=== PATIENT | female | born 2000 | race Caucasian/White ===

== ENCOUNTER 2024-11-14 15:12 | Outpatient (OUT) | payer OTHER, SELFPAY ==
--- OUTSIDE RECORDS SUMMARY | 2024-11-14 15:22 | XMS_ITS | Clinical Summary ---
Author Organization [employer] Address [id number] [address] [place] [address] Care Team Providers Care Staff Reporter Name Role Phone Amanuel Duncan MD Primary Care Provider [phone] Allergies No known active allergies Medications no115/iron/folic acid ( 19 ORAL) Take by mouth. Active Active Problems Estimated Date of Delivery Comme nts Yes 02/12/2025 Based on Ultraso und No known active problems Encounters Date Type Department Care Team Description 10/03/2024 8:45 AM EDT Routine [facility] [address] [facility] [address] [place] [address] Thor Wilkinson MD GA: 21w1d 10/03/2024 Travel 10/02/2024 Telephone [facility] [address] [facility] [address] [place] [id number] Parul Walker RMA Need photo ID 09/23/2024 Travel 08/27/2024 9:00 AM EDT Routine [facility] [address] [facility] [address] [place] [address] Thor Wilkinson MD GA: 15w6d 08/26/2024 Travel from Last 3 Months Family History Medical History Relation Name Comments Autism Brother No Known Problems Father No Known Problems Maternal Grandfather No Known Problems Maternal Grandmother Hypertension Mother No Known Problems Paternal Grandfather No Known Problems Paternal Grandmother Relation Name Status Comments Brother Alive Father Alive Maternal Grandfather Alive Maternal Grandmother Alive Mother Alive Paternal Grandfather Alive Paternal Grandmother Alive Social History Tobacco Use Types Packs/Day Years Used Date Smoking Tobacco: Never Smokeless Tobacco: Never Tobacco Cessation:Counseling Given: Not Answered Alcohol Use Standard Drinks/Week Comments Not Currently 2 (1 standard drink = 0.6 oz pur e alcohol) Overall Financial Resource Strain (CARDIA) Answe r Date Recorded How hard is it for you to pa y for the very basics like food, housing, medical care, and heating? Not very hard 10/03/2024 PHQ-2 Answer Date Recorded Total Score 0 10/03/2024 Housing Instability Answer Date Recorde d Are you worried or concerned that in the next two months you may not have stable housing that you own, rent or stay in as a part of a household? No 07/09/2024 Childcare Answer Date Recorded Do problems getting child ca re make it difficult for you to work or study? No 10/03/2024 Hunger Screening Answer Date Recorded Within the past 12 months we worried whether our food would run out before we got money to buy more. Never True 10/03/2024 Within the past 12 months th e food we bought just didn't last and we didn't have money to get more. Never True 10/03/2024 Estimated Date of Delivery Comme nts Yes 02/12/2025 Based on Ultraso und Sex and Gender Information Value Date Recorded Sex Assigned at Female 09/23/2024 12:10 PM EDT Legal Sex Female 5:01 PM EST Gender Identity Female 09/23/2024 12:10 PM EDT Sexual Orientation Not on file Last Filed Vital Signs Vital Sign Reading Time Taken Comments Blood Pressure 128/89 10/03/2024 8:31 AM EDT Pulse 118 03/23/2022 5:32 PM EST Temperature 36.6 C (97.9 F) 03/23/2022 5:32 PM EST Respiratory Rate 16 03/23/2022 5:32 PM EST Oxygen Saturation 100% 03/23/2022 5:32 PM EST Inhaled Oxygen Concentration - - Weight 71.7 kg (158 lb) 10/03/2024 8:31 AM EDT Height 162.6 cm (5' 4 ) 06/06/2024 9:31 AM EST Body Mass Index 27.12 06/06/2024 9:31 AM EST Plan of Treatment Health Maintenance Due Date Last Done Comments Adult BMI Follow Up Plan 08/28/2017 DTaP,Tdap and Td Vaccines (7 - Td or Tdap) 10/09/2021 10/10/2011, 12/28/2004, 11/12/2002, Additional history exists COVID-19 Vaccine (3 - 2023-2 5 season) 2024 05/03/2021, 04/04/2021 Influenza Vaccine 01/05/2025 02/22/2024, , 03/13/2022, Additional history exists Adult BMI Screening 10/03/2025 10/03/2024 Depression Screening 10/03/2025 10/03/2024 Tobacco Screening 10/03/2025 10/03/2024 Pap Smear 07/22/2027 07/21/2024 Medical Devices Not on file Procedures Procedure Name Priority Date/Time Associated Diagnosis Comments AFP SINGLE MARKER SCRN, MATERNAL, SERUM Routine 09/23/2024 2:51 PM EDT Second trimester PAP SMEAR Routine 07/21/2024 5:46 AM EDT Pap smear for cervical cancer screening from Last 3 Months or Most Recently Relevant to Health Maintenance Results * AFP Single Marker Scrn, Maternal, Serum (09/23/2024 2:51 PM EDT) AFP SINGLE MARKER SCRN, MATERNAL, SERUM SEE COMMENTS 09/24/2024 2:02 PM EDT [facility] Comment: Test Result Flag Unit RefValue AFP Single Marker SCRN, Maternal, S Results Summary Normal risk Neural tube defect risk estimate 05/09,700 AFP 90.9 ng/mL AFP MoM 1.59 MoM <2.50 INTERPRETATION Screen negative for neural tube defects. RECOMMENDED FOLLOW UP None. Specimen collection date 09/23/24 Maternal date of 89 Calculated age at COURTNEY 24 years Maternal Weight 145 lbs Insulin dependent diabetes No Patient race non-Black Current cigarette smoking status non-Smoker COURTNEY by LMP 02/12/25 GA on collection by dates 19,5 wk,d GA used in risk estimate Dates estimate Number of Fetuses 1 Number of Chorions Unknown IVF No Prev w/ Neural Tube Defect Not provided by client Patient or father of baby has a NTD Not provided by client Initial or repeat testing Initial testing Physician GENERAL TEST INFORMATION SEE COMMENTS This screening provides an estimation of risk, not a diagnosis. Incorrect or incomplete information may significantly alter results. Results may be unreliable in twin pregnancies with a demise. Results are not available for pregnancies with triplets and higher-order multiples. A positive result occurs when the AFP MoM equals or exceeds 2.5. Screen results and family history influence individual risk. If there is a family history of a neural tube defect, chromosome abnormality, or other inherited condition, consider the option of a genetic consultation. For further information, please contact the maternal screening laboratory at . ADDITIONAL INFORMATION This test was developed and its performance characteristics determined by [facility] in a manner consistent with CLIA requirements. This test has not been cleared or approved by the U.S. Food and Drug Administration. Test Performed by: [facility] - [address] [address] Corrugated Sheet Material Sheeter: Michael Swanson Ph.D.; CLIA# [id number] Blood Venipuncture / Unknown 09/23/2024 2:51 PM EDT 09/23/2024 2:51 PM EDT us Thor Wilkinson MD LAB BLOOD ORDERABLES Final Res ult [facility] [address] [place] [address], * Pap Smear (07/21/2024 5:46 AM EDT) 07/21/2024 5:46 AM EDT 07/21/2024 5:47 AM EDT Narrative [facility] - 08/01/2024 4:08 PM EDT [facility] [address] [place] [address] Gynecologic Cytology Consultation Patient Name:NIKI KAT:2000 (Age: 23)Gender:FTaken:07/21/2024Reported:08/01/2024Physician(s):Thor Wilkinson M.D. ([phone])Copy To: Rec. #:[id number]: #[id number] Final Cytologic Interpretation ThinPrep Pap Test (Cervical): Satisfactory for evaluation. A transformation zone component is not identified via imaging-assisted review, using [employer] Thin Prep Imaging System, within 22 microscopic siegel of view. NEGATIVE FOR INTRAEPITHELIAL LESION OR MALIGNANCY. [facility] [place]24 Interpretation performed at [facility], [address] [place] [address], License number: [id number]. Electronically Signed Out By YUE Santoyo(ASCP) Date of Last Menstrual Period: (None Given) Other Clinical Conditions: Z12.4 Screening for malignant neoplasm of cervix Source of Specimen ThinPrep Pap Test (Cervical) Thin Prep Pap (SIGN ARTIST) Fee Code(s): G0145 The Pap test is a screening test with an inherent, but low, probability of error. The Pap test is primarily effective for the diagnosis and prevention of squamous cell carcinoma. Regular screening is critical for prevention. ThinPrep liquid-based slides, which meet the Programming Manager criteria for automated screening, have been screened by the ThinPrep Imaging System (as of 01/21/07) along with an additional manual rescreening by a hydrogeology professor and, if indicated, by a pathologist. Thor Wilkinson MD PATHOLOGY/CYTOLOGY ORDERABLES Final Result [facility] from Last 3 Months or Most Recently Relevant to Health Maintenance Insurance [employer] Care Teams Staff Reporter Relationship Specialty Start Date End Date Amanuel Duncan MD [address] [place] [address] PCP - General Family Medicine 06/05/24
--- OUTSIDE RECORDS SUMMARY | 2024-11-14 15:22 | XMS_ITS | Encounter Summary ---
Author Organization [employer] Address [id number] [address] [place] [address] Care Team Providers Care Pot Puller Name Role Phone Amanuel Duncan MD Primary Care Provider [phone] Encounter Details Date Type Department Care Team (Late st Contact Info) Description 08/06/2024 Orders Only [facility] [address] [facility] [address] [place] [address] Ref Prov, [place] [address] Social History Tobacco Use Types Packs/Day Years Used Date Smoking Tobacco: Never Smokeless Tobacco: Never Alcohol Use Standard Drinks/Week Comments Not Currently 2 (1 standard drink = 0.6 oz pur e alcohol) Overall Financial Resource Strain (CARDIA) Answe r Date Recorded How hard is it for you to pa y for the very basics like food, housing, medical care, and heating? Not very hard 07/09/2024 PHQ-2 Answer Date Recorded Total Score 0 07/09/2024 Housing Instability Answer Date Recorde d Are you worried or concerned that in the next two months you may not have stable housing that you own, rent or stay in as a part of a household? No 07/09/2024 Childcare Answer Date Recorded Do problems getting child ca re make it difficult for you to work or study? No 07/09/2024 Hunger Screening Answer Date Recorded Within the past 12 months we worried whether our food would run out before we got money to buy more. Never True 07/09/2024 Within the past 12 months th e food we bought just didn't last and we didn't have money to get more. Never True 07/09/2024 Estimated Date of Delivery Comme nts Yes 02/12/2025 Based on Ultraso und Sex and Gender Information Value Date Recorded Sex Assigned at Female 09/23/2024 12:10 PM EDT Legal Sex Female 5:01 PM EST Gender Identity Female 09/23/2024 12:10 PM EDT Sexual Orientation Not on file documented as of this encounter Plan of Treatment Not on file documented as of this encounter Procedures Procedure Name Priority Date/Time Associated Diagnosis Comments UNLISTED GENETIC TEST Routine 08/06/2024 8:04 AM EDT documented in this encounter Results * Unlisted Genetic Test (08/06/2024 8:04 AM EDT) us Not In System Ref Prov LAB BLOOD ORDERABLES Nena l Result MANUALLY TRANSCRIBED RESULTS documented in this encounter Visit Diagnoses Not on filedocumented in this encounter Additional Health Concerns Assessment Noted Time PHQ-9 Depression Total Score: 0 07/10/19 6:51 AM EST documented as of this encounter Care Teams Pot Puller Relationship Specialty Start Date End Date Amanuel Duncan MD [address] [place] [address] PCP - General Family Medicine 06/05/24 documented as of this encounter
--- OUTSIDE RECORDS SUMMARY | 2024-11-14 15:22 | XMS_ITS | Encounter Summary ---
Author Organization [facility] Address [address] [facility] [place] [address] Care Team Providers Care Graphic Arts Technician Name Role Phone Amanuel Duncan MD Primary Care Provider [phone] Encounter Details Date Type Department Care Team (Late Contact Info) Description 10/16/2024 Abstract [facility] [address] [facility] [place] [address] [place] [phone] Barry Levy DO [facility] Catalina [place], [id number] Social History Tobacco Use Types Packs/Day Years Used Date Smoking Tobacco: Never Assessed Comments Unknown Sex and Gender Information Value Date Recorded Sex Assigned at Not on file Legal Sex Female 7:40 PM EDT Gender Identity Not on file Sexual Orientation Not on file documented as of this encounter Plan of Treatment Upcoming Encounters Date Type Department Care Team ([facility] Contact Info) Description 11/17/2024 3:20 PM EDT Routine [facility] [address] [place] [phone] Barry Levy DO [address] [place], [id number] documented as of this encounter Visit Diagnoses Not on filedocumented in this encounter Care Teams Graphic Arts Technician Relationship Specialty Start Date End Date Amanuel Duncan MD [address] [facility] [place] [address] PCP - General Family Medicine 10/20/24 documented as of this encounter
--- OUTSIDE RECORDS SUMMARY | 2024-11-14 15:22 | XMS_ITS | Clinical Summary ---
Author Organization [facility] Address [address] [facility] [place] [address] Care Team Providers Care Flight Readiness Technician Name Role Phone Amanuel Duncan MD Primary Care Provider [phone] Allergies No known active allergies Medications MV-Min-Fe Fum-FA-DHA ( 1 PO) Take by mouth Active Encounters Date Type Department Care Team Description 10/29/2024 2:30 PM EDT Ancillary Procedure [facility] [address] [place] [address] Screening, , for anatomic survey ([facility]) 10/21/2024 Abstract [facility] [address] [place] [phone] Barry Levy, 10/20/2024 3:30 PM EDT Initial [facility] [address] [place] [address] Barry Levy, DO GA: 23w4d 10/20/2024 Bamboo flowsheet [facility] [address] [place] [address] Barry Levy, DO 10/16/2024 Abstract [facility] [address] [place] [address] Barry Levy, DO 10/16/2024 Abstract [facility] [address] [place] [address] Barry Levy, DO 2024 Telephone [facility] [address] [place] [address] Barry Levy DO Error (VOID this visit) from Last 3 Months Social History Tobacco Use Types Packs/Day Years Used Date Smoking Tobacco: Never Assessed Estimated Date of Delivery Comme nts Yes 02/12/2025 Based on Ultraso und Sex and Gender Information Value Date Recorded Sex Assigned at Not on file Legal Sex Female 7:40 PM EDT Gender Identity Not on file Sexual Orientation Not on file Last Filed Vital Signs Vital Sign Reading Time Taken Comments Blood Pressure 118/68 10/20/2024 3:57 PM EDT Pulse - - Temperature - - Respiratory Rate - - Oxygen Saturation - - Inhaled Oxygen Concentration - - Weight 72.6 kg (160 lb) 10/20/2024 3:57 PM EDT Height 165.1 cm (5' 5 ) 10/29/2018 12:00 PM EDT Body Mass Index 26.63 10/29/2018 12:00 PM EDT Plan of Treatment Upcoming Encounters Date Type Department Care Team (Late st Contact Info) Description 11/17/2024 3:20 PM EDT Routine [facility] [address] [place] [address] [place] [address] Barry Levy DO [address] [place] [address] [place] [address] Health Maintenance Due Date Last Done Comments Influenza Vaccine (#1) 2025 , 02/21/2023, 03/13/2022, Additional history exists Procedures Procedure Name Priority Date/Time Associated Diagnosis Comments US OB 14+ WEEKS ANATOMY SCAN Routine 10/29/2024 3:32 PM EDT Screening, , for anatomic survey ([facility]) POCT URINALYSIS DIPSTICK Routine 10/20/2024 4:09 PM EDT 23 weeks gestation of ([facility]) from Last 3 Months Results * US OB 14+ weeks anatomy scan (10/29/2024 3:32 PM EDT) Anatomical Region Laterality Modality Body Ultrasound 11/02/2024 10:0 4 PM EDT Narrative 11/02/2024 10:04 PM EDT EXAM: US OB 14+ WEEKS ANATOMY SCAN HISTORY: anatomy. COMPARISON: None available. TECHNIQUE: Two-dimensional transabdominal grayscale ultrasound imaging of the pelvis was performed. FINDINGS: Gestation: Single Presentation: Cephalic Cardiac Activity: 144 beats per minute Placental Location: Anterior with no sonographic abnormalities identified. Distance from Placental Tip to Cervix: 6.1 cm Cervical Length: 4.2 cm Amniotic Fluid: Appears adequate MEASUREMENTS: BPD: 6.3 cm EGA: 25 weeks 5 days HC: 23.2 cm EGA: 25 weeks 2 days AC: 21.7 cm EGA: 26 weeks 1 days FL: 4.9 cm EGA: 26 weeks 2 days HC/AC Ratio: 1.07 The gestational age by today's ultrasound is 25 weeks 6 days (+/- 13 days gestation). Estimated Weight: 894 grams, +/- 134 grams ( 2 lb 0 oz). Weight Percentile for gestational age: 90 % ANATOMY C-Spine: Unremarkable T-Spine: Unremarkable L-Spine: Unremarkable Sacrum: Unremarkable Four Chamber Heart: Unremarkable LVOT: Unremarkable RVOT: Unremarkable Stomach: Unremarkable Kidneys: Unremarkable Bladder: Unremarkable Diaphragm: Unremarkable Cord insertion: Unremarkable Cord vessels: Three Lateral Ventricles: Unremarkable Cerebellum: Unremarkable Cisterna Magna: Unremarkable Posterior Fossa: Unremarkable Right Femur: Unremarkable Left Femur: Unremarkable Right Tib/Fib: Unremarkable Left Tib/Fib: Unremarkable Right Rad/Ulnar: Unremarkable Left Rad/Ulnar: Unremarkable Right Humerus: Unremarkable Left Humerus: Unremarkable Nose/Lips: Unremarkable Profile: Unremarkable Orbits: Unremarkable IMPRESSION: 1. Single, live intrauterine gestation 24 weeks, 6 days by LMP. Today's ultrasound measurements correlate with a gestational age of 25 weeks 6 days. Estimated weight is 894 grams, +/- 134 grams ( 2 lb 0 oz) which correlates to 90 %. COURTNEY by today's ultrasound is 02/05/2025. 2. growth is measuring large for gestational age. 3. Unremarkable ultrasound of the anatomy. Interpreted by: Electronically signed by LYNNE NGO II, MD, PHD at 02-Nov-2024 10:02:49 PM [facility] Procedure Note Lynne Ngo MD - 11/02/2024 EXAM: US OB 14+ WEEKS ANATOMY SCAN HISTORY: anatomy. COMPARISON: None available. TECHNIQUE: Two-dimensional transabdominal grayscale ultrasound imaging ofthe pelvis was performed. FINDINGS: Gestation: Single Presentation: Cephalic Cardiac Activity: 144 beats per minute Placental Location: Anterior with no sonographic abnormalitiesidentified. Distance from Placental Tip to Cervix: 6.1 cm Cervical Length: 4.2 cm Amniotic Fluid: Appears adequate MEASUREMENTS: BPD: 6.3 cm EGA: 25 weeks 5 days HC: 23.2 cm EGA: 25 weeks 2 days AC: 21.7 cm EGA: 26 weeks 1 days FL: 4.9 cm EGA: 26 weeks 2 days HC/AC Ratio: 1.07 The gestational age by today's ultrasound is 25 weeks 6 days (+/- 13 daysgestation). Estimated Weight: 894 grams, +/- 134 grams ( 2 lb 0 oz). Weight Percentile for gestational age: 90 % ANATOMY C-Spine: Unremarkable T-Spine: Unremarkable L-Spine: Unremarkable Sacrum: Unremarkable Four Chamber Heart: Unremarkable LVOT: Unremarkable RVOT: Unremarkable Stomach: Unremarkable Kidneys: Unremarkable Bladder: Unremarkable Diaphragm: Unremarkable Cord insertion: Unremarkable Cord vessels: Three Lateral Ventricles: Unremarkable Cerebellum: Unremarkable Cisterna Magna: Unremarkable Posterior Fossa: Unremarkable Right Femur: Unremarkable Left Femur: Unremarkable Right Tib/Fib: Unremarkable Left Tib/Fib: Unremarkable Right Rad/Ulnar: Unremarkable Left Rad/Ulnar: Unremarkable Right Humerus: Unremarkable Left Humerus: Unremarkable Nose/Lips: Unremarkable Profile: Unremarkable Orbits: Unremarkable IMPRESSION: 1. Single, live intrauterine gestation 24 weeks, 6 days by LMP. Today'sultrasound measurements correlate with a gestational age of 25 weeks 6days. Estimated weight is 894 grams, +/- 134 grams ( 2 lb 0 oz)which correlates to 90 %. COURTNEY by today's ultrasound is 02/05/2025. 2. growth is measuring large for gestational age. 3. Unremarkable ultrasound of the anatomy. Interpreted by: Electronically signed by LYNNE NGO II, MD, PHD [id number] 10:02:49 PM [facility] us Galilea PIEDRA IMG OB US PROCEDURES Final Resul t * POCT urinalysis dipstick manually resulted (10/20/2024 4:09 PM EDT) Color, UA Yellow Clarity, UA Clear Glucose, UA Negative Negative - 1999(110) ++++ mg/dL Bilirubin, UA Negative Negative - 4(70) +++ mg/dL Ketones, UA Negative Negative - 160(16) ++++ mg/dL Spec Grav, UA 1.015 1 - 1.03 Blood, UA Negative Negative - 50 Renaldo/mcL pH, UA 7.0 5 - 9 Protein, UA Negative Negative - 2000(20) ++++ mg/dL Urobilinogen, UA 0.2 0.2 - 12 mg/dL Leukocytes, UA Negative Negative - 500+++ Parker/mcL Nitrite, UA Negative Negative - Positive Urine 10/20/2024 4:09 PM EDT Barry Levy DO POINT OF CARE TEST ENTER/EDIT OR DERABLES Final Result from Last [address] [facility] Address: [address] [address] Care Teams Flight Readiness Technician Relationship Specialty Start Date End Date Amanuel Duncan MD [address] [facility] [place] [address] PCP - General Family Medicine 10/20/24
--- OUTSIDE RECORDS SUMMARY | 2024-11-14 15:22 | XMS_ITS | Patient Health Record ---
Author Organization [facility] [place] Address [address] [place] [address] Care Team Providers Care Silverware Supervisor Name Role Phone Deondre Duncan Primary Care Provider [phone] Allergies No Known Allergies Reason For Referral No Information Medications Medication SIG (Take, Route, Fr equency, Duration) Notes Start Date End Date Status Diclofenac Sodium 75 MG 1 tablet as need ed Orally Twice a day for 30 10/30/2022 Active tiZANidine HCl 4 MG 2 tablets Orally at bedtime for 15 10/30/2022 Active Social History Tobacco Use: Social History Observation Description Date Details (start date - stop date) Never Smoker NA - NA Tobacco Use/Smoking Question Answer Notes Patient is a nonsmoker Alcohol Screen (Audit-C) Question Answer Notes Did you have a drink contain ing alcohol in the past year? Yes How often did you have 6 or more drinks on one occasion in the past year? Never (0 point) How many drinks did you have on a typical day when you were drinking in the past year? 1 or 2 drinks (0 point) How often did you have a dri nk containing alcohol in the past year? Monthly (2 points) Points 2 Interpretation Negative Problems Problem Type SNOMED Code ICD Code Onset Dates Problem Status W/U Status Risk Notes Problem Trapezius muscle spasm (M62.838) Active confirmed Plan Of Treatment No Information Insurance Providers Payer Name Payer Address Payer Phone Subscriber Number Group Number Insured Name Patient Relationship to Insured Coverage Start Date Coverage End Date [facility] [address] [place] [address] [phone] [id number] Sumeet Morataya Spouse - patient is the spouse of the insured Medical (General) History Medical History History ICD Code IBS (irritable bowel syndrome) K58.9
--- OUTSIDE RECORDS SUMMARY | 2024-11-14 15:22 | XMS_ITS | Encounter Summary ---
Author Organization [facility] Address [address] [facility] [place] [address] Care Team Providers Care Weigher And Grader Name Role Phone Amanuel Duncan MD Primary Care Provider [phone] Encounter Details Date Type Department Care Team (Late Contact Info) Description 10/21/2024 Abstract [facility] [address] [facility] [place] [phone] Barry Levy [facility] [place], [place] [address] Social History Tobacco Use Types Packs/Day Years [...] Encounters Date Type Department Care Team (Late Contact Info) Description 11/17/2024 3:20 PM EDT Routine [facility] [address] [facility] [place] [phone] Barry Levy DO [address] [place] [address] documented as of this encounter Visit Diagnoses Not on filedocumented in this encounter Care Teams Weigher And Grader Relationship Specialty Start Date End Date Amanuel Duncan MD [address] [facility] [place] [address] PCP - General Family Medicine 10/20/24 documented as of this encounter
[2024-11-14 16:38] LABS: Hematocrit 37.7 % (36.0-48.0); Hemoglobin 12.9 g/dL (12.0-16.0); Immature Granulocytes Abs Auto 0.07 10^3/uL (0.00-0.03); Immature Granulocytes Pct Auto 0.5 % (0.0-0.5); Lymphocytes Absolute Auto 1.6 10^3/uL (1.2-3.8); Mean Corpuscular HGB Conc 34.2 g/dL (29.9-35.2); Mean Corpuscular Hemoglobin 31.5 pg (26.7-34.0); Mean Corpuscular Volume 92.2 fL (81.0-99.0); Platelet Count 293 10^3/uL (150-450); Red Blood Count 4.09 10^6/uL (4.20-5.40); White Blood Count 12.8 10^3/uL (4.0-11.0)
[2024-11-14 17:29] LABS: Glucose 1 Hour 88 mg/dL (<130)
== END 2024-11-14 15:13 | disposition home or self-care (01) ==
LOC: LAB 15:20
PROVIDERS: PCP Family Medicine; Visit Provider Obstetrics & Gynecology
DX: Z13.1 Encounter for screening for diabetes mellitus (principal); N92.6 Irregular menstruation, unspecified
CPT/HCPCS: 36415; 82950; 85025

== ENCOUNTER 2024-11-14 15:28 | Outpatient (OUT) | payer OTHER, SELFPAY ==
[2024-11-16 14:07] LABS: Rapid Plasma Reagin, Quant Non Reactive titer (NonRea<1:1)
== END 2024-11-14 15:29 | disposition home or self-care (01) ==
LOC: LAB 15:29
PROVIDERS: PCP Family Medicine; Visit Provider Physician Assistant
DX: Z13.1 Encounter for screening for diabetes mellitus (principal); N92.6 Irregular menstruation, unspecified
CPT/HCPCS: 36415; 82950; 83036; 85025; 86592

== ENCOUNTER 2025-01-14 20:17 | Outpatient (REF) | payer OTHER, SELFPAY | END 2025-01-14 20:18 | disposition home or self-care (01) | LOC: LAB 20:17 | PROVIDERS: PCP Family Medicine; Visit Provider Nurse Practitioner Family | DX: Z34.93 Encounter for supervision of normal pregnancy, unspecified, third trimester (principal); Z3A.35 35 weeks gestation of pregnancy | CPT/HCPCS: 87081 ==

== ENCOUNTER 2025-01-31 09:07 | Inpatient (IN) | payer OTHER, SELFPAY ==
--- OUTSIDE RECORDS SUMMARY | 2025-01-21 15:30 | XMS_ITS | Encounter Summary ---
Author Organization [facility] Address [address] [place] [address] Care Team Providers Care Water Purifier Name Role Phone Amanuel Duncan MD Primary Care Provider [phone] Reason for Visit * Reason Comments Routine Visit Encounter Details Date Type Department Care Team (Late st Contact Info) Description 01/21/2025 3:30 PM EDT Routine [facility] [address] [place] [address] Barry Levy DO [address] [place] [address] Third trimester ([facility]); 36 weeks gestation of ([facility]) Social History Tobacco Use Types Packs/Day Years Used Date Smoking Tobacco: Never Assessed Estimated Date of Delivery Comme nts Yes 02/12/2025 Based on Ultraso und Sex and Gender Information Value Date Recorded Sex Assigned at Not on file Legal Sex Female 7:40 PM EDT Gender Identity Not on file Sexual Orientation Not on file documented as of this encounter Last Filed Vital Signs Vital Sign Reading Time Taken Comments Blood Pressure 122/72 01/21/2025 3:37 PM EDT Pulse - - Temperature - - Respiratory Rate - - Oxygen Saturation - - Inhaled Oxygen Concentration - - Weight 85.3 kg (188 lb) 01/21/2025 3:37 PM EDT Height - - Body Mass Index 31.28 10/29/2018 12:00 PM EDT documented in this encounter Progress Notes * DOROTHEA Aragon - 01/21/2025 3:30 PM EDT Reason for Appointment: Patient ID: Lee Ann Morataya is a 24 y.o. female who presents for Routine Visit Patient presents today for Return OB appointment. MEDICATIONS Current Outpatient Medications Medication Instructions MV-Min-Fe Fum-FA-DHA ( 1 PO) Take by mouth ALLERGIES No Known Allergies PROBLEMS Active Ambulatory Problems Diagnosis Date Noted No Active Ambulatory Problems Resolved Ambulatory Problems Diagnosis Date Noted No Resolved Ambulatory Problems No Additional Past Medical History HISTORY PAST MEDICAL HISTORY SOCIAL HISTORY No past medical history on file. Social History Tobacco Use Smoking status: Not on file Smokeless tobacco: Not on file Substance Use Topics Alcohol use: Not on file Drug use: Not on file FAMILY HISTORY No family history on file. SURGICAL HISTORY History reviewed. No pertinent surgical history. REVIEW OF SYSTEMS Review of Systems: Review of Systems Constitutional: Negative. HENT: Negative. Eyes: Negative. Respiratory: Negative. Cardiovascular: Negative. Gastrointestinal: Negative. Genitourinary: Negative. Musculoskeletal: Negative. Skin: Negative. Neurological: Negative. All other systems reviewed and are negative. Hematological: Negative. Endocrine: Negative. Allergic/Immunologic: Negative. OBJECTIVE Objective: Physical Exam Constitutional: Appearance: Normal appearance. She is normal weight. HENT: Head: Normocephalic. Cardiovascular: Rate and Rhythm: Normal rate. Pulses: Normal pulses. Pulmonary: Effort: Pulmonary effort is normal. Breath sounds: Normal breath sounds. Abdominal: Palpations: Abdomen is soft. Musculoskeletal: General: Normal range of motion. Neurological: General: No focal deficit present. Mental Status: She is alert and oriented to person, place, and time. Psychiatric: Mood and Affect: Mood normal. Behavior: Behavior normal. Thought Content: Thought content normal. Judgment: Judgment normal. Vitals and nursing note reviewed. Vitals: Estimated body mass index is 31.28 kg/m?? as calculated from the following: Height as of 10/29/18: 5' 5 . Weight as of this encounter: 188 lb. BP: 122/72 No LMP recorded. Patient is . ASSESSMENT & PLAN ICD-10-CM 1. Third trimester ([facility]) Z34.93 POCT urinalysis dipstick manually resulted 2. 36 weeks gestation of ([facility]) Z3A.36 Return OB: Patient presents today for a routine obstetrics appointment. Patient is currently 36w6d . Patient states she is doing well but has complaints of being tired due to current . Patient has verbalizes frequent movement. labor precautions was discussed/given and patient was instructed to perform kick counts three times a day. Orders Placed This Encounter Procedures POCT urinalysis dipstick manually resulted Follow Up: Patient is to return to office in 1 week for routine OB appointment. Documented by DOROTHEA Aragon on behalf of: Barry Levy DO documented in this encounter Plan of Treatment Upcoming Encounters Date Type Department Care Team (Late st Contact Info) Description 02/04/2025 2:20 PM EDT Routine [facility] [address] [place] [address] Margarita Metz, GIANNI [address] [place] [address] documented as of this encounter Procedures Procedure Name Priority Date/Time Associated Diagnosis Comments POCT URINALYSIS DIPSTICK Routine 01/21/2025 3:44 PM EDT Third trimester ([facility] PAP SMEAR Routine 07/21/2024 12:00 AM EDT documented in this encounter Results * POCT urinalysis dipstick manually resulted (01/21/2025 3:44 PM EDT) Color, UA Yellow Clarity, UA Clear Glucose, UA Negative Negative - 1999(110) ++++ mg/dL Bilirubin, UA Negative Negative - 4(70) +++ mg/dL Ketones, UA Negative Negative - 160(16) ++++ mg/dL Spec Grav, UA 1.010 1 - 1.03 Blood, UA Negative Negative - 50 Renaldo/mcL pH, UA 7.0 5 - 9 Protein, UA Negative Negative - 1999(20) ++++ mg/dL Urobilinogen, UA 1.0 0.2 - 12 mg/dL Leukocytes, UA Negative Negative - 500+++ Parker/mcL Nitrite, UA Negative Negative - Positive Urine 01/21/2025 3:44 PM EDT us Barry Cam DO POINT OF CARE TEST ENTER/EDIT OR DERABLES Final Result * Pap Smear (07/21/2024 12:00 AM EDT) Swab Cervical swab / Unknown us Barry Cam DO LAB CYTOLOGY ORDERABLES Final Re sult EXTERNAL LAB documented in this encounter Visit Diagnoses Diagnosis Third trimester ([facility]) state, incidental 36 weeks gestation of ([facility]) documented in this encounter Care Teams Water Purifier Relationship Specialty Start Date End Date Amanuel Duncan MD [address] [place] [address] PCP - General Family Medicine 10/20/24 documented as of this encounter
--- OUTSIDE RECORDS SUMMARY | 2025-01-28 14:30 | XMS_ITS | Encounter Summary ---
Author Organization [facility] Address [address] [place] [address] Care Team Providers Care Fighting Vehicle Systems Maintainer Name Role Phone Amanuel Duncan MD Primary Care Provider [phone] Reason for Visit * Reason Comments Routine Visit Encounter Details Date Type Department Care Team (Late st Contact Info) Description 01/28/2025 2:30 PM EDT Routine [facility] [address] [place] [phone] Galilea Mahoney PA [address] [address] Third trimester ([facility] 37 weeks gestation of ([facility]) Social History Tobacco Use Types Packs/Day Years [...] Sign Reading Time Taken Comments Blood Pressure 120/78 01/28/2025 2:43 PM EDT Pulse - - Temperature - - Respiratory Rate - - Oxygen Saturation - - Inhaled Oxygen Concentration - - Weight 88 kg (194 lb) 01/28/2025 2:43 PM EDT Height - - Body Mass Index 32.28 10/29/2018 12:00 PM EDT documented in this encounter Progress Notes * DOROTHEA Aragon - 01/28/2025 2:30 PM EDT Reason for Appointment: Patient ID: [...] SYSTEMS Review of Systems: Review of Systems All other systems reviewed and are negative. OBJECTIVE Objective: Physical Exam Constitutional: Appearance: Normal appearance. Genitourinary: Right Adnexa: not tender and no mass present. Left Adnexa: not tender and no mass present. No cervical discharge. Breasts: Breasts are soft. Right: Normal. Left: Normal. HENT: Head: Normocephalic. Nose: Nose normal. Mouth/Throat: Mouth: Mucous membranes are moist. Cardiovascular: Rate and Rhythm: Normal rate. Pulmonary: Effort: Pulmonary effort is normal. Abdominal: General: Bowel sounds are normal. Palpations: Abdomen is soft. Musculoskeletal: General: Normal range of motion. Cervical back: Normal range of motion. Neurological: General: No focal deficit present. Mental Status: She is alert. Skin: General: Skin is warm and dry. Psychiatric: Mood and Affect: Mood normal. Vitals and nursing note reviewed. Exam conducted with a mechanical meter tester present. Vitals: Estimated body mass index is 31.28 kg/m?? as calculated from the following: Height as of 10/29/18: 5' 5 . Weight as of 01/21/25: 188 lb. BP: No LMP recorded. Patient is . ASSESSMENT & PLAN ICD-10-CM 1. Third trimester ([facility]) Z34.93 2. 37 weeks gestation of ([facility]) Z3A.37 Return OB: Patient presents today for a routine obstetrics appointment. Patient is currently 37w6d . Patient states she is doing well but has complaints of being tired due to current . Patient has verbalizes frequent movement. labor precautions was discussed/given and patient was instructed to perform kick counts three times a day. Patient states she has seen spotting today since the morning. Believes she may have lost her mucus plug. Pt desires to be checked today dueto the spotting. No orders of the defined types were placed in this encounter. Follow Up: Patient is to return to office in 1 week for routine OB appointment. Documented by Bonny Porter MA on behalf of: DOROTHEA Aragon documented in this encounter Plan of Treatment Upcoming Encounters Date Type Department Care Team (Late st Contact Info) Description 02/04/2025 2:20 PM EDT Routine [facility] [address] [place] [address] Margarita Metz, DEVELOPMENTAL PSYCHOLOGIST [address] [place] [address] documented as of this encounter Procedures Procedure Name Priority Date/Time Associated Diagnosis Comments POCT URINALYSIS DIPSTICK Routine 01/28/2025 2:50 PM EDT Third trimester ([facility]) documented in this encounter Results * (ABNORMAL) POCT urinalysis dipstick manually resulted (01/28/2025 2:50 PM EDT) Color, UA Yellow Clarity, UA Clear Glucose, UA Negative Negative - 1999(110) ++++ mg/dL Bilirubin, UA Negative Negative - 4(70) +++ mg/dL Ketones, UA Negative Negative - 160(16) ++++ mg/dL Spec Grav, UA 1.015 1 - 1.03 Blood, UA Positive Negative - 50 Renaldo/mcL pH, UA 7.0 5 - 9 Protein, UA 1+ Negative - 2000(20) ++++ mg/dL Urobilinogen, UA 1.0 0.2 - 12 mg/dL Leukocytes, UA Negative Negative - 500+++ Parker/mcL Nitrite, UA Negative Negative - Positive Urine 01/28/2025 2:50 PM EDT Galilea PIEDRA POINT OF CARE TEST ENTER/EDIT OR DERABLES Final Result documented in this encounter Visit Diagnoses Diagnosis Third trimester ([facility]) state, incidental 37 weeks gestation of ([facility]) documented in this encounter Care Teams Fighting Vehicle Systems Maintainer Relationship Specialty Start Date End Date Amanuel Duncan MD [address] [place] [address] PCP - General Family Medicine 10/20/24 documented as of this encounter
[2025-01-31] VITALS (47 sets, daily range): BP systolic 94–197; BP diastolic 53–110; PULSE 61–173; TEMP 36.3–37.7
--- OUTSIDE RECORDS SUMMARY | 2025-01-31 09:12 | XMS_ITS | Encounter Summary ---
Author Organization [facility] Address [address] [place] [place] [address] Care Team Providers Care Mortgage Loan Processing Clerk Name Role Phone Amanuel Duncan MD Primary Care Provider [phone] Encounter Details Date Type Department Care Team (Latest Contact Info) Description 01/21/2025 Travel Social History Tobacco Use Types Packs/Day Years [...] Info) Description 02/04/2025 2:20 PM EDT Routine [facility] [address] [place] [address] Margarita Metz, GIANNI [address] [place] [address] documented as of this encounter Visit Diagnoses Not on filedocumented in this encounter Care Teams Mortgage Loan Processing Clerk Relationship Specialty Start Date End Date Amanuel Duncan MD [address] [facility] [place] [address] PCP - General Family Medicine 10/20/24 documented as of this encounter
--- OUTSIDE RECORDS SUMMARY | 2025-01-31 09:12 | XMS_ITS | Encounter Summary ---
Author Organization [facility] Address [address] [place] [address] [place] [address] Care Team Providers Care Lighting Specialist Name Role Phone Amanuel Duncan MD Primary Care Provider [phone] Encounter Details Date Type Department Care Team (Late Contact Info) Description 01/15/2025 Abstract [facility] [address] [place] [address] Barry Levy DO [address] [place], [place] [address] Social History Tobacco Use Types Packs/Day Years [...] Department Care Team (Late Contact Info) Description 02/04/2025 2:20 PM EDT Routine [facility] [address] [facility] [address] Margarita Metz NP [address] [place] [phone] documented as of this encounter Visit Diagnoses Not on filedocumented in this encounter Care Teams Lighting Specialist Relationship Specialty Start Date End Date Amanuel Duncan MD [address] [place] [address] PCP - General Family Medicine 10/20/24 documented as of this encounter
--- OUTSIDE RECORDS SUMMARY | 2025-01-31 09:12 | XMS_ITS | Encounter Summary ---
Author Organization [facility] Address [address] [place] [address] Care Team Providers Care Recruitment Director Name Role Phone Amanuel Duncan MD Primary Care Provider [phone] Encounter Details Date Type Department Care Team ([facility] Contact Info) Description 01/21/2025 Bamboo flowsheet [facility] [address] [facility] [place] [address] Barry Levy DO [address] [place] [address] [address] [place], [place] [address] Social History Tobacco Use Types Packs/Day Years [...] 02/04/2025 2:20 PM EDT Routine [facility] [address] [facility] [place] [address] Margarita Metz NP [address] [place] [phone] documented as of this encounter Visit Diagnoses Not on filedocumented in this encounter Care Teams Recruitment Director Relationship Specialty Start Date End Date Amanuel Duncan MD [address] [place] [address] PCP - General Family Medicine 10/20/24 documented as of this encounter
--- OUTSIDE RECORDS SUMMARY | 2025-01-31 09:12 | XMS_ITS | Encounter Summary ---
Author Organization [facility] Address [address] [place] [address] Care Team Providers Care Data Security Analyst Name Role Phone Amanuel Duncan MD Primary Care Provider [phone] Encounter Details Date Type Department Care Team ([facility] Contact Info) Description 01/28/2025 Bamboo flowsheet [facility] [address] [place] [address] Galilea Mahoney PA [address] [place], [place] [address] Social History Tobacco Use Types Packs/Day Years [...] PM EDT Routine [facility] [address] [place] [address] Margarita Metz NP [address] [place] [phone] documented as of this encounter Visit Diagnoses Not on filedocumented in this encounter Care Teams Data Security Analyst Relationship Specialty Start Date End Date Amanuel Duncan MD [address] [place] [address] PCP - General Family Medicine 10/20/24 documented as of this encounter
--- OUTSIDE RECORDS SUMMARY | 2025-01-31 09:13 | XMS_ITS | Encounter Summary ---
Author Organization [facility] Address [address] [place] [address] Care Team Providers Care Press Operator Printing Name Role Phone Amanuel Duncan MD Primary Care Provider [phone] Encounter Details Date Type Department Care Team (Late Contact Info) Description 10/21/2024 Abstract [facility] [address] [facility] [place] [address] Barry Levy DO [address] [place], [place] [address] Social History Tobacco Use Types Packs/Day Years [...] 2:20 PM EDT Routine [facility] [address] [facility] [place] [address] Margarita Metz NP [address] [place] [phone] documented as of this encounter Visit Diagnoses Not on filedocumented in this encounter Care Teams Press Operator Printing Relationship Specialty Start Date End Date Amanuel Duncan MD [address] [place] [address] PCP - General Family Medicine 10/20/24 documented as of this encounter
--- OUTSIDE RECORDS SUMMARY | 2025-01-31 09:13 | XMS_ITS | Clinical Summary ---
Author Organization [employer] Address [id number] [address] [place] [address] Care Team Providers Care Abalone Processor Name Role Phone Amanuel Duncan MD Primary Care Provider [phone] Allergies No known active allergies Medications no115/iron/folic acid ( 19 ORAL) Take by mouth. Active Active Problems Estimated Date of Delivery Comme nts Yes 02/12/2025 Based on Ultraso und No known active problems Family History Medical History Relation Name Comments [...] Additional history exists COVID-19 Vaccine (3 - 2024-2 6 season) 2025 05/03/2021, 04/04/2021 Influenza Vaccine 01/05/2025 02/22/2024, , 03/13/2022, Additional history exists Adult BMI Screening 10/03/2025 10/03/2024 Depression Screening 10/03/2025 10/03/2024 Tobacco Screening 10/03/2025 10/03/2024 Pap Smear 07/22/2027 07/21/2024 Medical Devices Not on file Procedures Procedure Name Priority Date/Time Associated Diagnosis Comments PAP SMEAR Routine 07/21/2024 5:46 AM EDT Pap smear for cervical cancer screening from Last 3 Months or Most Recently Relevant to Health Maintenance Results * Pap Smear (07/21/2024 5:46 AM EDT) 07/21/2024 5:46 AM EDT 07/21/2024 5:47 AM EDT Narrative COPATH - 08/01/2024 4:08 PM EDT [facility] [address] [place] [address] Gynecologic Cytology Consultation Patient Name:NIKI KAT:2000 (Age: 23)Gender:FTaken:07/21/2024Reported:08/01/2024Physician(s):Thor Wilkinson M.D. ([phone])Copy To: Rec. #:[id number]: #[id number] Final Cytologic Interpretation ThinPrep Pap Test (Cervical): Satisfactory for evaluation. A transformation zone component is not identified via imaging-assisted review, using Sian's Plan Imaging System, within 22 microscopic siegel of view. NEGATIVE FOR INTRAEPITHELIAL LESION OR MALIGNANCY. [facility]/08/01/2024 Interpretation performed at [facility], [address] [place] [address], License number: [id number]. Electronically Signed Out By YUE Santoyo(ASCP) Date of Last Menstrual Period: (None Given) Other Clinical Conditions: Z12.4 Screening for malignant neoplasm of cervix Source of Specimen ThinPrep Pap Test (Cervical) Thin Prep Pap (REGIONAL BRANCH MANAGER) Fee Code(s): G0145 The Pap test is a screening test with an inherent, but low, probability of error. The Pap test is primarily effective for the diagnosis and prevention of squamous cell carcinoma. Regular screening is critical for prevention. ThinPrep liquid-based slides, which meet the Consulting Manager criteria for automated screening, have been screened by the ThinPrep Imaging System (as of 01/21/07) along with an additional manual rescreening by a transit operations supervisor and, if indicated, by a pathologist. Thor Wilkinson MD PATHOLOGY/CYTOLOGY ORDERABLES Final Result COPATH from Last 3 Months or Most Recently Relevant to Health Maintenance Insurance [employer] Care Teams Abalone Processor Relationship Specialty Start Date End Date Amanuel Duncan MD [address] [place] [address] PCP - General Family Medicine 06/05/24
--- OUTSIDE RECORDS SUMMARY | 2025-01-31 09:13 | XMS_ITS | Encounter Summary ---
Author Organization [facility] Address [address] [facility] [place] [address] Care Team Providers Care Complex Commercial Litigation Paralegal Name Role Phone Amanuel Duncan MD Primary Care Provider [phone] Encounter Details Date Type Department Care Team (Late Contact Info) Description 10/16/2024 Abstract [facility] [address] [place] [address] Barry Levy DO [address] [facility] [address] [place], [facility] Social History Tobacco Use Types Packs/Day Years [...] Info) Description 02/04/2025 2:20 PM EDT Routine [facility] [address] [place] [address] Margarita Metz NP [address] [place] [address] documented as of this encounter Visit Diagnoses Not on filedocumented in this encounter Care Teams Complex Commercial Litigation Paralegal Relationship Specialty Start Date End Date Amanuel Duncan MD [address] [facility] [place] [address] PCP - General Family Medicine 10/20/24 documented as of this encounter
--- OUTSIDE RECORDS SUMMARY | 2025-01-31 09:13 | XMS_ITS | Encounter Summary ---
Author Organization [facility] Address [address] [facility] [place] [address] Care Team Providers Care Water Meter Installer Name Role Phone Amanuel uDncan MD Primary Care Provider [phone] Encounter Details Date Type Department Care Team (Late Contact Info) Description 10/16/2024 Abstract [facility] [address] [facility] [place] [address] Barry Levy DO [address] [facility] [address] [place], [facility] Social History Tobacco Use Types Packs/Day Years [...] 2:20 PM EDT Routine [facility] [address] [facility] [place] [address] Margarita Metz NP [address] [facility] [place] [address] documented as of this encounter Visit Diagnoses Not on filedocumented in this encounter Care Teams Water Meter Installer Relationship Specialty Start Date End Date Amanuel Duncan MD [address] [facility] [place] [address] PCP - General Family Medicine 10/20/24 documented as of this encounter
--- OUTSIDE RECORDS SUMMARY | 2025-01-31 09:13 | XMS_ITS | Clinical Summary ---
Author Organization [facility] Healthcare Address [address] [address] Care Team Providers Care Bridge Inspector Name Role Phone Amanuel Duncan MD Primary Care Provider [phone] Allergies No known active allergies Medications MV-Min-Fe Fum-FA-DHA ( 1 PO) Take by mouth Active metroNIDAZOLE (Flagyl) 500 MG tabletIndicatio ns:BV (bacterial vaginosis) Take 1 tablet (500 mg) by mouth in the morning and 1 tablet (500 mg) before bedtime. Do all this for 7 days. Do not drink alcohol while taking this medication. 14 tablet 01/22/20 25 Discontinu ed(Therapy completed) Encounters Date Type Department Care Team Description 01/28/2025 2:30 [place] [address] Galilea Mahoney PA Third trimester ([facility]); 37 weeks gestation of ([facility]) 01/28/2025 [place] [address] Galilea Mahoney PA 01/21/2025 3:30 [place] [address] Barry Levy DO Third trimester ([facility]); 36 weeks gestation of ([facility]) 01/21/2025 Bamboo flowsheet [facility] [address] [place] [address] Barry Levy, DO 01/21/2025 Travel 01/15/2025 Results Follow-Up [facility] [address] [place] [address] Elen Merchant LPN RECURRENT VAGINITIS (HTRX) 01/15/2025 Abstract [facility] [address] [place] [address] Barry Levy, 01/15/2025 Telephone [facility] [address] [place] [address] Elen Merchant LPN 01/14/2025 2:40 PM EDT Routine [facility] [address] [place] [address] Margarita Metz NP Third trimester ([facility]); 35 weeks gestation of ([facility]); Encounter for screening examination for sexually transmitted infection 01/14/2025 External Result Encounter [facility] External Department Unsolicited Margarita Metz NP 01/14/2025 Bamboo flowsheet [facility] [place] [facility] [address] [place] [address] Margarita Metz NP 12/31/2024 3:00 PM EDT Routine [facility] [place] [facility] [address] [place] [address] Galilea Mahoney PA Third trimester ([facility]); 33 weeks gestation of ([facility]) 12/31/2024 Bamboo flowsheet [facility] [place] [facility] [address] [place] [address] Galilea Mahoney PA 12/17/2024 11:30 AM EDT Routine [facility] [address] [place] [address] [place] [address] Barry Levy DO 31 weeks gestation of ([facility]); Third trimester ([facility]) 12/17/2024 Bamboo flowsheet [facility] [place] [facility] [place] [address] Barry Levy, 12/16/2024 Travel 12/02/2024 9:20 AM EDT Routine [facility] [place] [facility] [place] [address] Galilea Mahoney PA Third trimester ([facility]); 29 weeks gestation of ([facility]) 12/02/2024 8:30 AM EDT Ancillary Procedure [facility] [place] [facility] [place] [address] 27 weeks gestation of ([facility]); size inconsistent with dates ([facility]) 11/17/2024 3:20 PM EDT Routine [facility] [place] [facility] [place] [address] Barry Levy DO Second trimester ([facility]); 27 weeks gestation of ([facility]); Missed menses; , unspecified gestational age ([facility]); size inconsistent with dates ([facility]) 11/17/2024 Bamboo flowsheet [facility] [place] [facility] [place] [address] Barry Levy DO 11/14/2024 Clinisync Result Encounter NOMS External Department Unsolicited Galilea Mahoney PA from Last 3 Months Social History Tobacco [...] (194 lb) 01/28/2025 2:43 PM EDT Height 165.1 cm (5' 5 ) 10/29/2018 12:00 PM EDT Body Mass Index 32.28 10/29/2018 12:00 PM EDT Plan of Treatment Upcoming Encounters Date Type Department Care Team (Late st Contact Info) Description 02/04/2025 2:20 PM EDT Routine [facility] [address] [place] [address] Margarita Metz, GIANNI [address] [place] [phone] Health Maintenance Due Date Last Done Comments Influenza Vaccine (#1) 2025 4, 02/21/2023, 03/13/2022, Additional history exists Procedures Procedure Name Priority Date/Time Associated Diagnosis Comments POCT URINALYSIS DIPSTICK Routine 01/28/2025 2:50 PM EDT Third trimester ([facility]) POCT URINALYSIS DIPSTICK Routine 01/21/2025 3:44 PM EDT Third trimester ([facility]) RECURRENT VAGINITIS (HTRX) Routine 01/14/2025 3:13 PM EDT POCT URINALYSIS DIPSTICK Routine 01/14/2025 2:58 PM EDT Third trimester ([facility]) POCT URINALYSIS DIPSTICK Routine 12/31/2024 3:43 PM EDT Third trimester ([facility]) POCT URINALYSIS DIPSTICK Routine 12/17/2024 11:39 AM EDT 31 weeks gestation of ([facility]) Third trimester ([facility]) POCT URINALYSIS DIPSTICK Routine 12/02/2024 9:46 AM EDT Third trimester ([facility]) 29 weeks gestation of ([facility]) US OB FOLLOW UP TRANSABDOMINAL APPROACH Routine 12/02/2024 8:54 AM EDT 27 weeks gestation of ([facility]) size inconsistent with dates ([facility]) POCT URINALYSIS DIPSTICK Routine 11/17/2024 3:44 PM EDT Second trimester ([facility]) RAPID PLASMA REAGIN, QUANT Routine 11/14/2024 4:23 PM EDT GLUCOSE 1 HOUR Routine 11/14/2024 4:23 PM EDT ALL CBC WITH AUTO DIFF Routine 4:23 PM EDT MLR HEMOGLOBIN A1C Routine 11/14/2024 4: 23 PM EDT from Last 3 Months Results * (ABNORMAL) POCT urinalysis dipstick manually resulted (01/28/2025 2:50 PM EDT) Only the most recent of7 resultswithin the time period is included. Color, UA Yellow Clarity, UA Clear Glucose, [...] TEST ENTER/EDIT OR DERABLES Final Result * (ABNORMAL) RECURRENT VAGINITIS (HTRX) (01/14/2025 3:13 PM EDT) [facility] ATOPOBIUM VAGINAE 21.22(A) 19.961 - 24.689 ppm 01/15/2025 5:55 AM EDT [facility] ATOPOBIUM VAGINAE Detected(A) 19.961 - 24.689 ppm 01/15/2025 5:55 AM EDT [facility] BVAB 2,3 (BACTERIAL VAGINOSIS ASSOCIATED BACTERIA 2, 3); MOBILUNCUS SPP 25.611(A) 19.961 - 24.689 ppm 01/15/2025 5:55 AM EDT [facility] BVAB 2,3 (BACTERIAL VAGINOSIS ASSOCIATED BACTERIA 2, 3); MOBILUNCUS SPP Detected(A) 19.961 - 24.689 ppm 01/15/2025 5:55 AM EDT [facility] DI ALBICANS, PARAPSILOSIS, TROPICALIS 0 23.000 - 30.347 ppm 01/15/2025 5:55 AM EDT [facility] DI ALBICANS, PARAPSILOSIS, TROPICALIS Not Detected 23.000 - 30.347 ppm 01/15/2025 5:55 AM EDT [facility] DI GLABRATA 0 23.000 - 31.618 ppm 01/15/2025 5:55 AM EDT [facility] DI GLABRATA Not Detected 23.000 - 31.618 ppm 01/15/2025 5:55 AM EDT [facility] DI KRUSEI 0 23.000 - 30.873 ppm 01/15/2025 5:55 AM EDT [facility] DI KRUSEI Not Detected 23.000 - 30.873 ppm 01/15/2025 5:55 AM EDT [facility] CHLAMYDIA TRACHOMATIS 0 23.000 - 31.586 ppm 01/15/2025 5:55 AM EDT [facility] CHLAMYDIA TRACHOMATIS Not Detected 23.000 - 31.586 ppm 01/15/2025 5:55 AM EDT [facility] GARDNERELLA VAGINALIS 28.116(A) 19.961 - 24.689 ppm 01/15/2025 5:55 AM EDT [facility] GARDNERELLA VAGINALIS Detected(A) 19.961 - 24.689 ppm 01/15/2025 5:55 AM EDT [facility] MEGASPHAERA (TYPES 1, 2) 0 19.961 - 24.689 ppm 01/15/2025 5:55 AM EDT [facility] JAVONHAERA (TYPES 1, 2) Not Detected 19.961 - 24.689 ppm 01/15/2025 5:55 AM EDT [facility] NEISSERIA GONORRHOEAE 0 23.000 - 32.587 ppm 01/15/2025 5:55 AM EDT [facility] NEISSERIA GONORRHOEAE Not Detected 23.000 - 32.587 ppm 01/15/2025 5:55 AM EDT [facility] TRICHOMONAS VAGINALIS 0 23.000 - 31.995 ppm 01/15/2025 5:55 AM EDT [facility] TRICHOMONAS VAGINALIS Not Detected 23.000 - 31.995 ppm 01/15/2025 5:55 AM EDT [facility] MYCOPLASMA GENITALIUM 0 19.961 - 24.689 ppm 01/15/2025 5:55 AM EDT [facility] MYCOPLASMA GENITALIUM Not Detected 19.961 - 24.689 ppm 01/15/2025 5:55 AM EDT [facility] ERMB, C; MEFA 24.726(A) 23.000 - 27.500 ppm 01/15/2025 5:55 AM EDT [facility] ERMB, C; MEFA Detected(A) 23.000 - 27.500 ppm 01/15/2025 5:55 AM EDT [facility] TET B, TET M 24.704(A) 23.000 - 27.500 ppm 01/15/2025 5:55 AM EDT [facility] TET B, TET M Detected(A) 23.000 - 27.500 ppm 01/15/2025 5:55 AM EDT [facility] 01/14/2025 3:13 PM EDT 01/15/2025 1:23 AM EDT us Margarita Metz NP LAB BLOOD ORDERABLES Final Re sult [facility] [address] [id number] * US OB follow up transabdominal approach (12/02/2024 8:54 AM EDT) Anatomical Region Laterality Modality Body Ultrasound 12/03/2024 7:35 AM EDT Narrative 12/03/2024 7:35 AM EDT EXAM: US OB FOLLOW UP TRANSABDOMINAL APPROACH HISTORY: Inconsistent size. COMPARISON: Ob ultrasound 10/29/2024. TECHNIQUE: Two-dimensional transabdominal grayscale ultrasound imaging of the pelvis was performed. FINDINGS: Gestation: Single Presentation: Cephalic Cardiac Activity: 141 beats per minute Amniotic Fluid Index: 14.8 cm MEASUREMENTS: BPD: 7.9 cm EGA: 31 weeks 5 days HC: 27.9 cm EGA: 30 weeks 4 days AC: 26.4 cm EGA: 30 weeks 4 days FL: 5.8 cm EGA: 30 weeks 1 days HC/AC Ratio: 1.06 The gestational age by today's ultrasound is 30 weeks 5 days (+/- 15 days gestation). Estimated Weight: 1584 grams, +/- 238 grams ( 3 lb 8 oz). Weight Percentile for gestational age: 66 % IMPRESSION: 1. Single, live intrauterine gestation 29 weeks, 5 days by LMP. Today's ultrasound measurements correlate with a gestational age of 30 weeks 5 days. Estimated weight is 1584 grams, +/- 238 grams ( 3 lb 8 oz) which correlates to 66 %. COURTNEY by today's ultrasound is 02/05/2025. Interpreted by: Electronically signed by LYNNE NGO II, MD, PHD at 03-Dec-2024 07:33:52 AM [facility] Procedure Note Lynne Ngo MD - 12/03/2024 EXAM: US OB FOLLOW UP TRANSABDOMINAL APPROACH HISTORY: Inconsistent size. COMPARISON: Ob ultrasound 10/29/2024. TECHNIQUE: Two-dimensional transabdominal grayscale ultrasound imaging ofthe pelvis was performed. FINDINGS: Gestation: Single Presentation: Cephalic Cardiac Activity: 141 beats per minute Amniotic Fluid Index: 14.8 cm MEASUREMENTS: BPD: 7.9 cm EGA: 31 weeks 5 days HC: 27.9 cm EGA: 30 weeks 4 days AC: 26.4 cm EGA: 30 weeks 4 days FL: 5.8 cm EGA: 30 weeks 1 days HC/AC Ratio: 1.06 The gestational age by today's ultrasound is 30 weeks 5 days (+/- 15 daysgestation). Estimated Weight: 1584 grams, +/- 238 grams ( 3 lb 8 oz). Weight Percentile for gestational age: 66 % IMPRESSION: 1. Single, live intrauterine gestation 29 weeks, 5 days by LMP. Today'sultrasound measurements correlate with a gestational age of 30 weeks 5days. Estimated weight is 1584 grams, +/- 238 grams ( 3 lb 8 oz)which correlates to 66 %. COURTNEY by today's ultrasound is 02/05/2025. Interpreted by: Electronically signed by LYNNE NGO II, MD, PHD [id number] 07:33:52 AM [facility] us Barry Cam DO IMG OB US PROCEDURES Final Resul t * GLUCOSE 1 HOUR (11/14/2024 4:23 PM EDT) GLUCOSE 1 HOUR 88 <130 mg/dL [facility] 11/14/2024 4:23 PM EDT 11/14/2024 5:05 PM EDT Narrative [facility] - 11/14/2024 5:56 PM EDT us Barry Cam DO LAB BLOOD ORDERABLES Final Resul t Performing Organization Address City/[facility] Co de Phone Number [facility] * RAPID PLASMA REAGIN, QUANT (11/14/2024 4:23 PM EDT) [facility] RAPID PLASMA REAGIN, QUANT Non Reactive NonRea<1: 1 titer [facility] Comment: Please Note: This test does not meet current guidelines for screening and diagnosis of syphilis. This test is intended for following treatment response in patients being treated for syphilis infection. To screen for syphilis infection, a reflex cascade that includes both RPR and a treponema-specific assay should be utilized, such as Treponema pallidum (Syphilis) Screening [place] (470948) or Rapid Plasma Reagin (RPR) Test With Reflex to Quantitative RPR and Confirmatory Treponema pallidum Antibodies ([id number]). Performed at: [address] [id number] [employer]: Jose Antonio Hilton PhD, Phone: [phone] 11/14/2024 4:23 PM EDT 11/14/2024 5:24 PM EDT Narrative [facility] - 11/16/2024 2:07 PM EDT Galilea PIEDRA LAB BLOOD ORDERABLES Final Resul t Performing Organization Address [facility] de Phone Number [facility] * MLR HEMOGLOBIN A1C (11/14/2024 4:23 PM EDT) [facility] GLYCOHEMOGLOBIN A1C 5.0 4.5 - 6.2 % [facility] Comment: ADA RECOMMENDED LIMIT 4.0 - 6.0 ADA THERAPEUTIC TARGET < 7.0 ACTION SUGGESTED > 7.0 ESTIMATED AVERAGE GLUCOSE 97 mg/dL [facility] 11/14/2024 4:23 PM EDT 11/14/2024 5:07 PM EDT Narrative [facility] - 11/14/2024 5:21 PM EDT us Galilea PIEDRA [facility] Final Result Performing Organization Address [facility] Co de Phone Number [facility] * (ABNORMAL) ALL CBC WITH AUTO DIFF (11/14/2024 4:23 PM EDT) [facility] WBC 12.8(H) 4.0 - 11.0 10 3/uL [facility] RBC 4.09(L) 4.20 - 5.40 10 6/uL [facility] HGB 12.9 12.0 - 16.0 g/dL [facility] HCT 37.7 36.0 - 48.0 % [facility] MCV 92.2 81.0 - 99.0 fL [facility] MCH 31.5 26.7 - 34.0 pg [facility]H [facility] MCHC 34.2 29.9 - 35.2 g/dL [facility] RDW 12.7 11.0 - 15.0 % [facility] PLT 293 150 - 450 10 3/uL [facility]H MPV 10.6 9.5 - 13.5 fL [facility] NEUTROPHILS PERCENT AUTO 80.6(H) 43.0 - 75.0 % [facility] LYMPHOCYTES PERCENT AUTO 12.3(L) 20.5 - 60.0 % [facility] MONOCYTES PERCENT AUTO 6.1 1.7 - 12.0 % [facility] EO % 0.3(L) 0.9 - 7.0 % [facility] BASOPHILS PERCENT AUTO 0.2 0.2 - 2.0 % [facility] IMMATURE GRANULOCYTES PCT AUTO 0.5 0.0 - 0.5 % [facility] NEUTROPHILS ABSOLUTE AUTO 10.3(H) 1.4 - 6.5 10 3/uL [facility] LYMPHOCYTES ABSOLUTE AUTO 1.6 1.2 - 3.8 10 3/uL [facility] MONOCYTES ABSOLUTE AUTO 0.8 0.3 - 0.8 10 3/uL [facility]H EO # 0.0 0.0 - 0.7 10 3/uL [facility] BASOPHILS ABSOLUTE AUTO 0.0 0.0 - 0.1 10 3/uL [facility] IMMATURE GRANULOCYTES ABS AUTO 0.07(H) 0.00 - 0.03 10 3/uL [facility] 11/14/2024 4:23 PM EDT 11/14/2024 5:26 PM EDT Narrative [facility] - 11/14/2024 5:27 PM EDT Barry Ordazo DO [facility] Final Result [facility] from Last 3 Months Insurance Care Teams Bridge Inspector Relationship Specialty Start Date End Date Amanuel Duncan MD [address] [place] [id number] PCP - General Family Medicine 10/20/24
--- OUTSIDE RECORDS SUMMARY | 2025-01-31 09:13 | XMS_ITS | Patient Health Record ---
Author Organization [facility] in [place] Address [address] [place] [address] Care Team Providers Care Dry Dip Worker Name Role Phone Deondre Duncan Primary Care Provider [phone] Allergies No Known Allergies Results Component Value Reference Range Notes Rapid Plasma Reagin, Quant Reviewed date:11/16/2024 04:25:20 PM Interpretation: Performing Lab: Notes/Report: [facility] , Rapid Plasma Reagin, Quant Non Reactive NonRea<1:1 titer Please Note: This test does not meet current guidelines for screening and diagnosis of syphilis. This test is intended for following treatment response in patients being treated for syphilis infection. To screen for syphilis infection, a reflex cascade that includes both RPR and a treponema-specific assay should be utilized, such as Treponema pallidum (Syphilis) Screening [place] (539364) or Rapid Plasma Reagin (RPR) Test With Reflex to Quantitative RPR and Confirmatory Treponema pallidum Antibodies ([id number]). Performed at: - [facility] [id number] [employer]: Jose Antonio Hilton PhD, Phone: [phone] Performing Lab: see note LC - [facility] LB Glucose 1 Hour Reviewed date:11/16/2024 04:25:20 PM Interpretation: Performing Lab: Notes/Report: [facility] , Glucose 1 Hour 88 <130 mg/dL Performing Lab: see note ML - [facility] LB Strep Gp B Culture+Rflx Reviewed date:01/19/2025 01:35:27 PM Interpretation: Performing Lab: Notes/Report: [facility] , Strep Gp B Culture+Rflx See Below For Report Strep Gp B Culture+Rflx Strep Gp B Culture+Rflx Negative Strep Gp B Culture+Rflx Strep Gp B Culture+Rflx Centers for Dise ase Control and Prevention (CDC) and Strep Gp B Culture+Rflx Strep Gp B Culture+Rflx [employer] Strep Gp B Culture+Rflx Strep Gp B Culture+Rflx (ACOG) guideline s for prevention of group B Strep Gp B Culture+Rflx Strep Gp B Culture+Rflx streptococcal (G BS) disease specify co-collection of Strep Gp B Culture+Rflx Strep Gp B Culture+Rflx a vaginal and re ctal swab specimen to maximize Strep Gp B Culture+Rflx Strep Gp B Culture+Rflx sensitivity of G BS detection. Per the CDC and ACOG, Strep Gp B Culture+Rflx Strep Gp B Culture+Rflx swabbing both th e lower vagina and rectum Strep Gp B Culture+Rflx Strep Gp B Culture+Rflx substantially in creases the yield of detection Strep Gp B Culture+Rflx Strep Gp B Culture+Rflx compared with sa mpling the vagina alone. Strep Gp B Culture+Rflx Strep Gp B Culture+Rflx Penicillin G, ampicillin, or cefazolin are indicated Strep Gp B Culture+Rflx Strep Gp B Culture+Rflx for intrapartum prophylaxis of GBS Strep Gp B Culture+Rflx Strep Gp B Culture+Rflx colonization. Re flex susceptibility testing should be Strep Gp B Culture+Rflx Strep Gp B Culture+Rflx performed prior to use of clindamycin only on GBS Strep Gp B Culture+Rflx Strep Gp B Culture+Rflx isolates from penicillin-allergic women who are Strep Gp B Culture+Rflx Strep Gp B Culture+Rflx considered a hig h risk for anaphylaxis. Treatment with Strep Gp B Culture+Rflx Strep Gp B Culture+Rflx vancomycin witho ut additional testing is warranted if Strep Gp B Culture+Rflx Strep Gp B Culture+Rflx resistance to clindamycin is noted. Strep Gp B Culture+Rflx Strep Gp B Culture+Rflx Performed at: - [facility] Strep Gp B Culture+Rflx Strep Gp B Culture+Rflx [address] [place], [place] [id number] Strep Gp B Culture+Rflx Strep Gp B Culture+Rflx [employer]: Diana Hilton PhD, Phone: [phone] Strep Gp B Culture+Rflx Performing Lab: see note LC - [facility] LB SEE REPORT - Residence Hall Director Id information not found for OBX-specific licensed sales producer legend GLYCOHEMOGLOBIN A1C Reviewed date:11/16/2024 04:25:20 PM Interpretation: Performing Lab: Notes/Report: [facility] , Glycohemoglobin A1C 5.0 4.5-6.2 % ADA RECOMMENDED LIMIT 4.0 - 6.0 ADA THERAPEUTIC TARGET < 7.0 ACTION SUGGESTED > 7.0 Estimated Average Glucose 97 Performing Lab: see note ML - [facility] LB CBC AUTO DIFF Reviewed date:11/16/2024 04:25:20 PM Interpretation: Performing Lab: Notes/Report: [facility] , White Blood Count 12.8 4.0-11.0 10 3/uL Red Blood Count 4.09 4.20-5.40 10 6/uL Hemoglobin 12.9 12.0-16.0 g/dL Hematocrit 37.7 36.0-48.0 % Mean Corpuscular Volume 92.2 81.0-99.0 fL Mean Corpuscular Hemoglobin 31.5 26.7-34.0 pg Mean Corpuscular HGB Conc 34.2 29.9-35.2 g/dL Red Cell Distribution Width 12.7 11.0-15.0 % Platelet Count 293 150-450 10 3/uL Mean Platelet Volume 10.6 9.5-13.5 fL Neutrophils Percent Auto 80.6 43.0-75.0 % Lymphocytes Percent Auto 12.3 20.5-60.0 % Monocytes Percent Auto 6.1 1.7-12.0 % Eosinophils Percent Auto 0.3 0.9-7.0 % Basophils Percent Auto 0.2 0.2-2.0 % Immature Granulocytes Pct Auto 0.5 0.0-0.5 % Neutrophils Absolute Auto 10.3 1.4-6.5 10 3/uL Lymphocytes Absolute Auto 1.6 1.2-3.8 10 3/uL Monocytes Absolute Auto 0.8 0.3-0.8 10 3/uL Eosinophils Absolute Auto 0.0 0.0-0.7 10 3/uL Basophils Absolute Auto 0.0 0.0-0.1 10 3/uL Immature Granulocytes Abs Auto 0.07 0.00-0.03 10 3/uL Performing Lab: see note ML - [facility] LB Reason For Referral No Information Medications Medication SIG (Take, Route, Fr equency, Duration) Notes Start Date End Date Status Diclofenac Sodium 75 MG 1 tablet as need ed Orally Twice a day; Duration: 10/30/2022 Active tiZANidine HCl 4 MG 2 tablets Orally at bedtime; Duration: 15 10/30/2022 Active Social History Tobacco Use: [...] Problem Status W/U Status Risk Notes Problem Spasm (60612936) Trapezius muscle spasm (M62.838) Active confirmed Plan Of Treatment No Information Insurance Providers Payer Name Payer Address Payer Phone Subscriber Number Group Number Insured Name Patient Relationship to Insured Coverage Start Date Coverage End Date [facility] CLAIMS [address] [place] [phone] [id number] Sumeet Morataya Spouse - patient is the spouse of the insured Medical (General) History Medical History History ICD Code IBS (irritable bowel syndrome) K58.9
--- OUTSIDE RECORDS SUMMARY | 2025-01-31 09:13 | XMS_ITS | Encounter Summary ---
Author Organization [employer] Address [id number] [address] [place] [address] Care Team Providers Care Manufacturing Engineering Manager Name Role Phone Amanuel Duncan MD Primary Care Provider [phone] Encounter Details Date Type Department Care Team (Late st Contact Info) Description 08/06/2024 Orders Only [facility] Ob[facility]etrics/[facility]necology [address] [place] [address] Ref [place], [place] [address] Social History Tobacco Use Types Packs/Day Years [...] documented as of this encounter Care Teams Manufacturing Engineering Manager Relationship Specialty Start Date End Date Amanuel Duncan MD [address] [place] [address] PCP - General Family Medicine 06/05/24 documented as of this encounter
[2025-01-31 10:26] LABS: Glucose Urine UA NEGATIVE (NEGATIVE)
[2025-01-31 10:42] LABS: Crystals Seen? Seen #/HPF (None Seen)
[2025-01-31 10:43] LABS: Cast Seen? NONE SEEN #/LPF (NONE SEEN)
[2025-01-31 10:46] LABS: Urine Culture Indicated YES-LC
[2025-01-31 11:29] LABS: Cannabinoid Screen Urine NEGATIVE (NEGATIVE); Methamphetamines Screen Urine NEGATIVE (NEGATIVE); Tricyclic Antidepressant Urine NEGATIVE (NEGATIVE)
[2025-01-31] MEDS: 0.9 % SODIUM CHLORIDE 1,000 ML 1000 ML IV (11:33)
--- NOTE | 2025-01-31 11:50 | PM.OBHP ---
OB - H&P: HPI History of Present Illness Chief complaint: leaking fluid : 1 Para: 0 Date of last menstrual period: 05/08/2024 Gestational age based on last menstrual period: 38w2d Narrative: 24yoG1 with COURTNEY 02/12/25 at 38w2d presents with SROM of clear fluid which occurred at 0230. She had a gush of fluid and has continued to have some trickles of fluid. She has good movement. She has contractions every 2-4 minutes. She has had uncomplicated care. She had an early dating ultrasound at 6 weeks which confirmed her dates. History of Present Dating criteria: LMP confirmed by 1st trimester US care: good care Ultrasounds: normal 1st trimester US and normal mid trimester US Medical complications OB: none Labs Blood type: O (+) positive Rubella: immune RPR/VDLR: nonreactive GBS status: negative HBsAG: negative Narrative: Hep C neg GC/Chlam neg 1 hr glucola= 88 Review of Systems ROS Status of ROS: 10 or more systems reviewed and unremarkable except as noted in history and below PFSH [facility] Medical History (Updated 01/31/25 @ 11:46 by LUANA HEWITT MD) Seasonal allergies ?J30.2 - Other seasonal allergic rhinitis (ICD-10) Family History Mother Family history of hypertension Social History Within the past year, how often did you have six or more drinks on one occasion: never Smoking status: Never smoker Second hand tobacco smoke exposure: No Non-prescribed substance use: denies use Do you think of yourself as: straight/heterosexual Gender Identity: female Meds Home Medications and Allergies Home Medications ?Medication ?Instructions ?Recorded ?Confirmed ?Type cetirizine 10 mg tablet (Zyrtec) 10 mg PO HS allergy symptoms 01/31/25 01/31/25 History Allergies Allergy/AdvReac Type Severity Reaction Status Date / Time No Known Drug Allergies Allergy Verified 01/31/25 09:18 Exam Constitutional Vital Signs, click to edit/add: Last Vital Signs Temp 97.7 F 01/31/25 11:05 Pulse 75 01/31/25 11:05 BP 129/79 01/31/25 11:05 Documenting provider has reviewed patient's vital signs: yes Common normals: no apparent distress, oriented x3, healthy appearing and alert HENMT Common normals: normocephalic Eye Common normals: EOMs intact bilaterally Neck & C-Spine Common normals: full ROM and supple Respiratory Common normals: normal respiratory effort and no retractions Cardio Common normals: regular rate GI Common normals: non-tender Common normals: no CVA tenderness OB/external & speculum: external exam normal Manual OB Exam: dilated 4 cm, effaced (80%) and station -1 Uterus palpation: other (gravid) Amniotic Fluid: clear (pink tinged) Back & Pelvis Common normals: no CVA tenderness Psych Common normals: mental status grossly normal, thought process normal and cooperative Appearance: grossly normal and well kempt Attitude: calm Results Labs Labs: Urine 01/31/25 Range/Units 09:19 Urine Color Lt. yellow (YELLOW) Urine Clarity Cloudy A (CLEAR) Urine pH 7.0 (5.0-9.0) Ur Specific [place] 1.010 (1.005-1.025) Urine Protein 30 A (NEG/TRACE) mg/dL Urine Glucose (UA) Negative (NEGATIVE) mg/dL OB - A/P Assessment and Plan (1) Normal labor: Plan Anesthesia consult for epidural Expect
[2025-01-31 12:29] LABS: Hematocrit 40.7 % (36.0-48.0); Hemoglobin 14.0 g/dL (12.0-16.0); Mean Corpuscular HGB Conc 34.4 g/dL (29.9-35.2); Mean Corpuscular Hemoglobin 30.9 pg (26.7-34.0); Mean Corpuscular Volume 89.8 fL (81.0-99.0); Platelet Count 269 10^3/uL (150-450); Red Blood Count 4.53 10^6/uL (4.20-5.40); White Blood Count 12.6 10^3/uL (4.0-11.0)
[2025-01-31] MEDS: 0.9 % SODIUM CHLORIDE 1,000 ML 125 ML IV (12:31)
[2025-01-31] MEDS: OXYTOCIN/0.9 % SODIUM CHLORIDE 10 UNITS/500 ML PLAST..BAG 6 UNIT IV (14:48)
[2025-01-31] MEDS: OXYTOCIN/0.9 % SODIUM CHLORIDE 20 UNITS/1,000 ML PLAST..BAG 125 UNIT IV (19:27)
[2025-01-31] MEDS: MISOPROSTOL 100 MCG TABLET 600 MCG PO (19:35)
--- NOTE | 2025-01-31 20:13 | PM.OBPRCVD ---
Procedure Procedure: Spontaneous Vaginal Delivery and repair of a second degree laceration and bilateral labial tears of a patient who presented in spontaneous labor with spontaneous rupture of membranes. Intrapartal events: None Delivery augmentation: pitocin Delivery monitor: external FHT and external uterine Route of delivery: Episiotomy Description: none L&D Laceration Description: perineal - 2nd degree and labial (bilateral) Delivery repair: Vicryl (3-0) Estimated blood loss (mL): 250 Anesthesia type: Epidural Disposition: floor Complications: none Infant Delivery date: 01/31/25 Gender: male presentation: vertex Placental delivery description: Spontaneous cord description: 3 Vessels, Nuchal Cord (1 loop), Loose and Reduced cord description comment: delayed cord clamping for over 1 minute heart rate - 1 minute: 100 bpm or Greater respiratory effort - 1 minute: Spontaneous/Strong Cry muscle tone - 1 minute: Active Movement reflex response - 1 minute: Prompt Response color - 1 minute: Bluish Hands or Feet total score - 1 minute: 9 heart rate - 5 minute: 100 bpm or Greater respiratory effort - 5 minute: Spontaneous/Strong Cry muscle tone - 5 minute: Active Movement reflex response - 5 minute: Prompt Response color - 5 minute: Bluish Hands or Feet total score - 5 minute: 9
[2025-01-31] MEDS: IBUPROFEN 400 MG TABLET 800 MG PO (22:39)
[2025-02-01] VITALS: BP 127/65; PULSE 91; TEMP 37.3
[2025-02-01 00:26] VITALS: TEMP 36.6
[2025-02-01] MEDS: GLYCERIN/WITCH HAZEL PADS 1 PAD TOPICAL (03:19)
[2025-02-01] MEDS: IBUPROFEN 400 MG TABLET 800 MG PO ×2 (05:39→14:55)
[2025-02-01 07:07] LABS: Hematocrit 34.4 % (36.0-48.0); Hemoglobin 11.9 g/dL (12.0-16.0); Immature Granulocytes Abs Auto 0.04 10^3/uL (0.00-0.03); Immature Granulocytes Pct Auto 0.3 % (0.0-0.5); Lymphocytes Absolute Auto 1.4 10^3/uL (1.2-3.8); Mean Corpuscular HGB Conc 34.6 g/dL (29.9-35.2); Mean Corpuscular Hemoglobin 31.2 pg (26.7-34.0); Mean Corpuscular Volume 90.1 fL (81.0-99.0); Platelet Count 196 10^3/uL (150-450); Red Blood Count 3.82 10^6/uL (4.20-5.40); White Blood Count 12.9 10^3/uL (4.0-11.0)
[2025-02-01 08:44] VITALS: TEMP 36.1
[2025-02-01 08:45] VITALS: BP 122/58; PULSE 90
[2025-02-01] MEDS: DOCUSATE SODIUM 100 MG CAPSULE PO ×2 (08:48→20:53)
[2025-02-01 12:23] VITALS: BP 113/71; PULSE 88; TEMP 36
--- NOTE | 2025-02-01 13:25 | PM.OBPN ---
OB - PN: Subj Subjective Patient comments: no complaints, pain well controlled and flatus present status: doing well and well Exam Constitutional Vital Signs, click to edit/add: Last Vital Signs Temp 96.8 F L 02/01/25 12:23 Pulse 88 02/01/25 12:23 Resp 16 02/01/25 08:45 BP 113/71 02/01/25 12:23 O2 Del Method Room Air 02/01/25 00:05 Documenting provider has reviewed patient's vital signs: yes Common normals: no apparent distress, oriented x3 and alert General appearance: cooperative, comfortable and well kempt HENMT Common normals: normocephalic Eye Common normals: EOMs intact bilaterally Neck & C-Spine Common normals: full ROM and supple Respiratory Common normals: normal respiratory effort and no retractions Cardio Common normals: regular rate GI Common normals: soft to palpation and non-tender Uterus palpation: other (fundus firm below the umbilicus, non-tender) Back & Pelvis Common normals: no CVA tenderness Extremity Common normals: no calf tenderness (trace edema in bilateral lower extremities) Psych Common normals: thought process normal, cooperative, affect normal and speech normal Appearance: grossly normal and well kempt Attitude: calm Results Labs Labs: Short CBC 02/01/25 Range/Units 06:40 WBC 12.9 H (4.0-11.0) 10^3/uL Hgb 11.9 L (12.0-16.0) g/dL Hct 34.4 L (36.0-48.0) % Plt Count 196 (150-450) 10^3/uL Urinary Catheter Management Urinary Catheter Management Urethral: Cath placed during this visit: yes, but has since been removed by the nurse Removal date: 01/31/25 Removal time: 18:34 OB - PN: A/P Assessment and Plan (1) Spontaneous vaginal delivery: Plan doing well Breast feeding Anticipate discharge home tomorrow Plan - Vaginal Delivery day: 1 Plan: routine care Comment: anticipate discharge tomorrow Time Spent with Patient Time: Total time spent is greater than 50% in coordination of care (as documented) at patient's floor/unit and/or counseling patient: Total time spent with greater than 50% in coordination of care (as documented) at patient's floor/unit and/or counseling patient: less than 15 minutes
[2025-02-01 20:55] VITALS: BP 129/79; PULSE 87
[2025-02-02] MEDS: IBUPROFEN 400 MG TABLET 800 MG PO ×2 (00:19→08:50)
[2025-02-02 00:26] VITALS: BP 123/74; PULSE 82
[2025-02-02] MEDS: DOCUSATE SODIUM 100 MG CAPSULE PO (08:50)
[2025-02-02 08:53] VITALS: BP 123/73; PULSE 92
[2025-02-02 08:55] VITALS: PULSE 92
[2025-02-02 09:00] VITALS: PULSE 92; TEMP 36.3
--- NOTE | 2025-02-02 11:11 | PM.OBDS ---
DS: Providers Provider Date of admission: 01/31/25 10:53 Primary care physician: Amanuel Duncan MD Admitting clinician: LUANA HEWITT Attending physician on admission: LUANA HEWITT Consults: 01/31/25 Consult to Anesthesiology Routine Consulting Provider: LUANA HEWITT Reason for consultation: epidural Has provider been notified: Yes Attending physician on discharge: LUANA HEWITT Discharging clinician: LUANA HEWITT Anticipated date of discharge: 02/02/25 DS: Diagnosis Discharge Diagnosis (1) Spontaneous vaginal delivery: Plan breast feeding doing well OB - DS: Summary Hospital Course Hospital Course: 24yo now P1 at 38w2d presented in labor with SROM and contractions. She received an epidural. She was later augmented with pitocin. She went on to deliver via over a second degree laceration and bilateral labial lacerations a 6 lb 4 oz male with Apgars of 9 and 9 at 1 and 5 minutes. She was breast feeding without difficulty. Pain was well controlled. Bleeding was slowing down nicely. Complications complications: none Infant Delivery method: spontaneous vaginal delivery Gender: male Discharge plan: home Status at Discharge Functional status at discharge: independent ambulation Overall status at discharge: patient is progressing back to baseline Time Spent with Patient Time attestation: Total time spent providing and/or coordinating discharge services: Time spent: less than 30 minutes Exam Constitutional Vital Signs, click to edit/add: Last Vital Signs Temp 97.4 F L 02/02/25 09:00 Pulse 92 H 02/02/25 09:00 Resp 18 02/02/25 09:00 BP 123/73 02/02/25 08:53 O2 Del Method Room Air 02/02/25 09:00 Documenting provider has reviewed patient's vital signs: yes Common normals: no apparent distress General appearance: cooperative, comfortable, well kempt and well developed Orientation/consciousness: Yes awake, Yes oriented to person, Yes oriented to place and Yes oriented to time HENMT Common normals: normocephalic Eye Common normals: EOMs intact bilaterally Respiratory Common normals: normal respiratory effort and no retractions Cardio Common normals: regular rate GI Palpation: soft and other (non-tender) Other: fundus firm below umbilicus Back & Pelvis Common normals: no CVA tenderness Extremity Common normals: no pedal edema Psych Common normals: thought process normal, affect normal and speech normal Appearance: grossly normal Discharge Plan Discharge Disposition: Home, Self-Care Condition: Good Discharge Medications: New ibuprofen 400 mg Tablet 800 mg PO Q8H Qty: 60 0RF Rx Instructions: 2 tablets every 8 hours as needed for pain Continued cetirizine [Zyrtec] 10 mg tablet 10 mg PO HS Activity: increase activity as tolerated Diet: regular diet Print Language: Syriac Forms: Portal Instructions Follow Up Appointments: Follow up in [address] Levy
[2025-02-02] MEDS: ACETAMINOPHEN 325 MG TABLET 650 MG PO (14:28)
== END 2025-02-02 16:00 | disposition home or self-care (01) | DRG 807 ==
PROVIDERS: Admitting Provider Obstetrics & Gynecology; PCP Family Medicine; Visit Provider Obstetrics & Gynecology
DX: O69.81X0 Labor and delivery complicated by cord around neck, without compression, not applicable or unspecified (principal); Z37.0 Single live birth; O70.1 Second degree perineal laceration during delivery; Z3A.38 38 weeks gestation of pregnancy
CPT/HCPCS: 36415; 51702; 59025; 59050; 59410; 80307; 81001; 84112; 85025; 85027; 86850; 86900; 86901; 87086; J0665

== ENCOUNTER 2025-02-04 08:11 | Outpatient (OUT) | payer OTHER, SELFPAY ==
--- NOTE | 2025-02-04 13:04 | PC.NURSE ---
Lee Ann and 4 day old Andrez arrive for follow up. Lee Ann states I am doing so much better than I thought I would Pleased with recovery. States the whole labor and experience was great, much better than my friends talked about. Denies concerns or complaints. VSS and assessment WNL. is eating well and drinking plenty of fluids. Minimal vaginal bleeding and minimal cramping at this time. Milk coming in today, breasts firm. Nipples intact, reviewed care of breasts and engorgement. Verbalized understanding.Baby Andrez, awake, fussy and rooting. Calms easily when talked too or held. Infant with VSS and assessment WNL. Weight up from discharge weight. Infant to breast, mom and baby work well to latch deeply and feed well. Baby nurses 18/02, released latch on his own, restful, drowsy. No concerns voiced by Lee Ann, aware to call for questions and of MOMS group. is very interested in MOMS group as she is a first time mother. Home at this time. Couplet doing very well.
[2025-02-04 13:08] VITALS: BP 134/84; PULSE 91; TEMP 36.7; O2SAT 98
== END 2025-02-04 13:14 | disposition home or self-care (01) ==
LOC: FBCO 08:16
PROVIDERS: PCP Family Medicine; Visit Provider Obstetrics & Gynecology
DX: Z39.1 Encounter for care and examination of lactating mother (principal)